=== PATIENT | female | born 1950 | race Caucasian/White ===

== ENCOUNTER → 2020-04-29 09:55 | Outpatient (CLI) | payer MEDICARE, OTHER, SELFPAY ==
[2020-04-29 10:58] LABS: COVID19 -Nasal RAPID Negative (Negative)
== END ==
PROVIDERS: Visit Provider Surgery
DX: Z20.822 Contact with and (suspected) exposure to COVID-19 (principal)
CPT/HCPCS: 87635; C9803

== ENCOUNTER 2020-04-30 06:39 | Day surgery (SDC) | payer MEDICARE, OTHER, SELFPAY ==
[2020-04-30] VITALS (8 sets, daily range): BP systolic 119–153; BP diastolic 56–96; PULSE 48–56; RESP 10–18; TEMP 36.6–37; O2SAT 95–100; BMI 21.4
[2020-04-30] MEDS: SODIUM CHLORIDE 0.9% 1,000 ML 200 ML IV (07:06)
--- NOTE | 2020-04-30 07:38 | PM.HP.1 ---
History of Present Illness History of Present Illness Date Patient Seen: 04/30/20 Time Patient Seen: 07:38 Chief complaint: [facility] [place] Narrative: This is a 69-year-old woman with history of colon polyps found on a colonscopy ten years ago. She denies any symptoms such as melena, hematochezia, abdominal pain, unexplained weight loss. Says she is otherwise quite healthy, and is here just for her follow-up surveillance colonoscopy. ROS Thirteen system review is otherwise negative other than as mentioned below and in HPI. PE GENERAL: Well groomed and cooperative. Appears stated age. Answers questions promptly and appropriately. Vital signs noted. HENT: Normocephalic, atraumatic. Hearing intact. EYES: Conjunctiva pink, sclera white, no periorbital swelling. CARDIOVASCULAR: Regular rate. No pedal edema. RESPIRATORY: Non-tachypneic, breathing comfortably on room air. GASTROINTESTINAL: Abdomen soft and non-distended GENITALURINARY: No flank tenderness. MUSCULOSKELETAL: Equal tone and mass bilaterally. SKIN: Warm, dry, soft, appropriate color for ethnicity. No other lesions, rashes, or wounds. NEURO: Alert and Oriented X 3. No gross sensory deficits, or cognitive issues. PSYCH: Appropriate affect and mood. Patient History Family & Social History Social History: household members spouse Tobacco & Substance use: Smoking Status Never smoker alcohol intake current alcohol intake frequency 0-2 drinks per day Substance Use Type does not use Meds Home Medications and Allergies Home Medications Medication Instructions Recorded Confirmed Type Vitamin B-12 1 PO DAILY #0 03/29/17 09/10/18 History hydroxyzine HCl 10 mg PO PRN PRN 09/10/18 04/30/20 History Allergies Allergy/AdvReac Type Severity Reaction Status Date / Time amoxicillin Allergy Severe Rash Verified 04/30/20 07:15 codeine [CODEINE] Allergy Unknown vomitting Verified 04/30/20 06:46 Sulfa (Sulfonamide AdvReac Mild Gastrointestinal Verified 04/30/20 07:15 Antibiotics) Upset Exam Vital Signs (past 8 hours): - 04/30/20 07:01 Temperature 98.1 F Pulse Rate 50 L Respiratory Rate 12 Blood Pressure 148/61 H Pulse Oximetry 99 Oxygen Delivery Method Room Air Assessment & Plan Assessment and plan (1) Personal history of colonic polyps: Status: Acute Assessment & Plan narrative: Risks and benefits of screening colonoscopy and possible polypectomy were discussed with the patient including risk of bleeding, perforation, need for additional procedures, risks of anesthesia. The patient desires to proceed with the colonoscopy procedure. COVID-19 COVID-19 status: Negative Result date/Date tested (Pos, Neg/Pending): 04/30/20 Time Spent With Patient Time with patient: 15-24 minutes Quality VTE Deep Vein Thrombosis/Pulmonary Embolism Present on Admission: No
[2020-04-30] MEDS: fentaNYL 250 MCG/5 ML INJ IV (08:07)
[2020-04-30] MEDS: MIDAZOLAM 5 MG/5 ML VIAL IV (08:07)
--- NOTE | 2020-04-30 08:18 | PM.OP.ENDO ---
Operative Date/Time/Diagnoses Date of procedure: 04/30/20 Time of procedure: 08:18 Pre-op diagnosis: Personal history of colon polyps Post-op diagnosis: other (Extremely tortuous colon, no polyps found on today's exam) Procedure & Clinicians Study performed: Colonoscopy Procedural sedation performed by the endoscopist Same procedure as scheduled: Yes Indications: Personal history of colon polyps, due for follow-up colonoscopy Surgeon: Critsina Pena Procedure Notes SCOAP/Timeout: Performed Procedure in detail: The patient was brought to the room and placed in left lateral decubitus position with all bony prominences padded. A time-out was performed and then the patient was given procedural sedation starting with 2 mg of Versed and 100 mcg of fentanyl. Total of 5 mg of Versed and 250 micro g of fentanyl were given for the entire procedure. Vitals were monitored throughout the procedure and remained stable. Once adequately sedated, the procedure was begun. A rectal exam was performed revealing no abnormalities. The colonoscope was then introduced to the rectum and advanced to the cecum in the usual fashion. The colon was extremely tortuous, and required multiple maneuvers to reach the cecum safely, including using the scope stiffener, turning the patient on her back, and using anterior pressure on the abdominal wall. The cecum was identified by the appendiceal orifice, the mucosal tri-fold, and the ileocecal valve. The scope was then retracted while rotating side to side and examining each mucosal fold. No polyps or other abnormalities were seen on the exam other than the extreme tortuosity of the colon. At the conclusion of the procedure small grade 1-2 internal hemorrhoids without stigmata of bleeding were seen. The scope was then withdrawn from the rectum the procedure was concluded. The patient tolerated the procedure well and was transferred to the PACU in stable condition. Scope withdrawal time: 6 Sedation minutes: 29 Findings: other findings (Extremely tortuous colon) Specimen(s): none sent Complications: none Impression: Extremely tortuous colon, no polyps seen on today's exam Post-procedure Recommendations: Colonscopy in 10 years Follow up: as needed Disposition: PACU
--- NOTE | 2020-04-30 09:13 | SUR.PHASEII ---
pt discharged and states she understands discharge instructions. Pt awake and wheeled to ER where she will be discharged with her .
== END 2020-04-30 09:14 | disposition home or self-care (01) ==
PROVIDERS: Referring Provider Surgery; Visit Provider Surgery
PROC: 0DJD8ZZ Inspection of Lower Intestinal Tract, Via Natural or Artificial Opening Endoscopic (ICD-10-PCS; CPT 45378; principal; 2020-04-30 07:45)
DX: Z12.11 Encounter for screening for malignant neoplasm of colon (principal); Z86.010 Personal history of colon polyps; K64.0 First degree hemorrhoids
CPT/HCPCS: G0105; 99152; 99153; J2250; J3010

== ENCOUNTER → 2020-06-19 09:42 | Outpatient (CLI) | payer MEDICARE, OTHER, SELFPAY ==
--- NOTE | 2020-06-19 09:44 | DI.RAD.S_ITS ---
PROCEDURE: XR HAND LT MIN 3V INDICATIONS: Hand injury TECHNIQUE: 3 views of the hand(s) acquired. COMPARISON: None. FINDINGS: Bones: No fractures or dislocations. Carpal bones are normally aligned. No suspicious bony lesions. Soft tissues: No suspicious soft tissue calcifications. IMPRESSION: Mild soft tissue swelling over the index finger, no fracture found. Dictated by: Tom Hollingsworth M.D. on 06/19/2020 at 10:11 Approved by: Tom Hollingsworth M.D. on 06/19/2020 at 10:18
== END ==
PROVIDERS: Referring Provider Physician Assistant; Visit Provider Physician Assistant
DX: S69.92XA Unspecified injury of left wrist, hand and finger(s), initial encounter (principal); M79.89 Other specified soft tissue disorders; X58.XXXA Exposure to other specified factors, initial encounter
CPT/HCPCS: 73130

== ENCOUNTER 2024-08-19 17:02 | Emergency (ER) | payer MEDICARE, SELFPAY ==
[2024-08-19 17:48] VITALS: BP 141/77; PULSE 67; RESP 16; TEMP 36.5; O2SAT 96; BMI 23.1
--- NOTE | 2024-08-19 23:22 | ED.WOUNDLAC ---
HPI - Wound/Laceration General Chief Complaint: Wound/Laceration Stated Complaint: l thumb laceration Time Seen by Provider: 08/19/24 19:23 Source: patient Mode of arrival: Ambulatory History of Present Illness HPI narrative: 74-year-old female presents with left thumb laceration after using knife to cut food. Her tetanus is up-to-date. She is able to move her thumb in all directions. Other than what is stated 14 point review of system is negative. Related Data Home Medications ?Medication ?Instructions ?Recorded ?Confirmed cyanocobalamin (vitamin B-12) 50 1 PO DAILY ##0 03/29/17 07/09/21 mcg tablet (Vitamin B-12) hydroxyzine HCl 10 mg PO PRN PRN Sleep 09/10/18 07/09/21 Allergies Allergy/AdvReac Type Severity Reaction Status Date / Time amoxicillin AdvReac Severe Rash Verified 08/19/24 17:48 Sulfa (Sulfonamide AdvReac Mild Gastrointestinal Verified 08/19/24 17:48 Antibiotics) Upset codeine (CODEINE) AdvReac Unknown vomitting Verified 08/19/24 17:48 Review of Systems Review of Systems ROS Unobtainable: All systems reviewed & are unremarkable except as noted in HPI and below Patient History Social History household members: spouse Smoking Status: Never smoker alcohol intake: current Smoking Status: Never smoker alcohol intake frequency: 0-2 drinks per day Alcohol type: beer Exam Narrative Exam Narrative: GENERAL: [74] year old patient appears stated age. Well-developed patient, in mild distress. HEAD: Atraumatic. Normocephalic. EYES: Pupils equal round and reactive. Extraocular motions intact. No scleral icterus. No injection or drainage. EXTREMITIES: No edema or joint tenderness. BACK: Nontender without deformity or crepitance. No flank tenderness. NEURO: AOx3. SKIN: No rash or erythema of visible areas. L index finger medial side superficial laceration 0.5cmx 0.5cm motor/sensory intact FROM OF L THUMB +2 rad pulse cap refill <2secs Initial Vital Signs Initial Vital Signs: Vital Signs Temperature 97.7 F 08/19/24 17:48 Pulse Rate 67 08/19/24 17:48 Respiratory Rate 16 08/19/24 17:48 Blood Pressure 141/77 H 08/19/24 17:48 Pulse Oximetry 96 08/19/24 17:48 Oxygen Delivery Method Room Air 08/19/24 17:48 Procedures Laceration Repair Laceration 1: Time of procedure: 23:35 Site: hand (L thumb) Side (If applicable): left Size (cm): 0.5 Description: linear Depth: simple, single layer Local Anesthetic: lidocaine 1% and with epi Amount of anesthesia used (mL): 1 Skin layer closed with: nylon Skin layer suture size: 5-0 Number of sutures: 3 Technique: simple, interrupted Course Vital Signs Vital signs: Vital Signs - 8 hr 08/19/24 17:48 Temperature 97.7 F Pulse Rate 67 Respiratory Rate 16 Blood Pressure 141/77 H Pulse Oximetry 96 Oxygen Delivery Method Room Air MDM - Wound/Laceration MDM Narrative Medical decision making narrative: Vital signs nurse triage note medication list previous ER visits in all imaging studies reviewed. Three stitches single interrupted using 5 0 Ethicon x1 packet. Bacitracin ointment applied wound dressing placed. Suture removal in 7-10 days with PCP. Differential diagnosis laceration, foreign body, tetanus, cellulitis. Suture removal 10 days. Discharge Plan Departure Patient Disposition: Home Clinical Impression: Laceration of thumb Qualifiers: Encounter type: initial encounter Damage to nail status: without damage Foreign body presence: without foreign body Laterality: left Qualified Code(s): S61.012A - Laceration without foreign body of left thumb without damage to nail, initial encounter Instructions: DI for Laceration Repair Activity Restrictions/Additional Instructions: Return with new or worsening. Follow up with PCP in 10 days for suture removal. Prescriptions: No Action hydroxyzine HCl 10 mg PO PRN PRN (Reason: Sleep) Vitamin B-12 50 mcg Tablet 1 PO DAILY Qty: 0 Referrals: Miscellaneous,Doctor [Primary Care Provider, Medical] Stand Alone Forms: Patient Portal/API
[2024-08-19 23:23] VITALS: PULSE 56; O2SAT 98
[2024-08-19 23:30] VITALS: BP 173/74; PULSE 53; RESP 16; O2SAT 98
[2024-08-19] MEDS: BACITRACIN OINT 0.9 GM PCKT 1 APPLIC TOP (23:37)
== END 2024-08-19 23:48 | disposition home or self-care (01) ==
PROVIDERS: Emergency Provider Family Medicine
DX: S61.012A Laceration without foreign body of left thumb without damage to nail, initial encounter (principal); W26.0XXA Contact with knife, initial encounter; Y93.89 Activity, other specified
CPT/HCPCS: 12001; 99283